=== PATIENT | male | born 1955 | race Caucasian/White ===

== ENCOUNTER 2024-08-13 07:00 | Day surgery (SDC) | payer OTHER, SELFPAY ==
[2024-08-08 13:17] VITALS: BMI 25.8
--- NOTE | 2024-08-08 13:46 | ESHP_ITS ---
RE: GLEN JOVEL : 1955 DATE OF ADMISSION: 08/08/2024 DATE OF OPERATION: 08/13/2024. CHIEF COMPLAINT: Numbness and tingling in both hands. HISTORY OF PRESENT ILLNESS: The patient is a 69-year-old male, who has developed carpal tunnel bilaterally by EMG and nerve conduction study. It has been going on for a number of months. Night symptoms are more compelling than the symptoms during the day. He is scheduled for a right carpal tunnel release. PAST MEDICAL HISTORY: Reviewed. SOCIAL HISTORY: with two children. OPERATIONS: None. ALLERGIES: NONE. MEDICATIONS: 1. Lisinopril. 2. Bisoprolol-hydrochlorothiazide. 3. Amlodipine. MAJOR MEDICAL ILLNESSES: Hypertension. FAMILY HISTORY: Positive for DE, hypertension. Both parents with heart attack. REVIEW OF SYSTEMS: Denies chest pain, shortness of breath, orthopnea, paroxysmal nocturnal dyspnea, dyspnea on exertion, productive cough, hemoptysis. No nausea, vomiting, diarrhea, constipation, hematemesis, hematochezia, melena, black tarry bowel movements. Denies dysuria or prior hematuria. Denies stroke, seizures, or syncopal episodes. No change in molds or rashes. No seizure disorder. PHYSICAL EXAMINATION: GENERAL: Shows a well-developed, well-nourished male, in no acute distress. HEENT: Normocephalic without masses. EOMs full. Throat clear. NECK: Supple. CHEST: Clear to P and A. HEART: Regular rate and rhythm. No murmurs. No gallops. ABDOMEN: Soft, nontender. No masses. No organomegaly. BREAST: Deferred. RECTAL: Deferred. EXTREMITIES: Examination of extremities shows that he has some thenar atrophy on the right. Decreased sensation in the median nerve distribution right and left hand. [employer]ing [employer] strength today 85 right and 85 left. He is right-hand dominant. ASSESSMENT: Severe carpal tunnel syndrome present bilaterally, right more than left to the point where he is unable to oppose tip of right thumb to tip of right little finger. PLAN: Right carpal tunnel release. The risks of the procedure were explained to the patient and signed informed consent was done in my office. DT: 12:46:05 TT: 13:45:00 Ref: [id number] - TID: [id number]
[2024-08-08 14:32] LABS: Basophils % (Auto) 0 % (0-2.5); Eosinophils # (Auto) 0.2 Thou/mm3 (0.0-0.5); Eosinophils % (Auto) 2 % (0-10); Hematocrit 43.6 % (41.0-53.0); Hemoglobin 15.6 g/dL (13.5-16.0); Immature Granulocytes % (Auto) 0 % (0-0); Immature Granulocytes Auto 0.02 Thou/mm3 (0.00-0.00); Lymphocytes # (Auto) 2.5 Thou/mm3 (1.0-4.8); Lymphocytes % (Auto) 32 % (10-50); Mean Corpuscular HGB Conc 35.8 g/dl (31.0-37.0); Mean Corpuscular Hemoglobin 32.9 pg (25.0-35.0); Mean Corpuscular Volume 92 fL (80-100); Monocytes # (Auto) 0.9 Thou/mm3 (0.0-0.8); Monocytes % (Auto) 11 % (0-12); Neutrophils # (Auto) 4.4 Thou/mm3 (1.8-7.7); Neutrophils % (Auto) 55 % (37-80); Nucleated Red Blood Cell % 0 /100 WBC (0); Platelet Count 236 Thou/mm3 (140-440); RDW Standard Deviation 39.8 fL (35.1-43.9); Red Blood Count 4.74 Miln/mm3 (4.50-5.90)
[2024-08-08 14:39] LABS: Partial Thromboplastin Time 27.3 Seconds (22.0-36.0); Prothrombin Time 11.4 Seconds (9.0-12.2)
[2024-08-08 14:43] LABS: Alanine Aminotransferase 29 U/L (10-49); Albumin, Serum 4.3 gm/dL (3.4-4.8); Albumin/Globulin Ratio 1.3 (1.2-2.2); Alkaline Phosphatase 71 U/L (46-116); Anion Gap 8 (7-16); Aspartate Amino Transferase 29 U/L (0-34); BUN/Creatinine Ratio 9 Ratio (12-20); Bilirubin,Total 0.5 mg/dL (0.3-1.2); Blood Urea Nitrogen 10 mg/dL (9-23); Calcium 9.5 mg/dL (8.3-10.6); Calcium (Corrected) 9.5 mg/dL (8.5-10.1); Carbon Dioxide 27.8 mMol/L (20.0-31.0); Chloride 105 mMol/L (98-107); Creatinine (Component) 1.1 mg/dL (0.6-1.3); Globulin 3.3 gm/dL (2.3-3.5); Glucose 108 mg/dL (74-106); Osmolality,Calculated 281 (275-295); Potassium 3.9 mMol/L (3.4-5.1); Sodium 141 mMol/L (136-145); Total Protein 7.6 gm/dL (5.7-8.2); eGFR > 60 See Note
--- NOTE | 2024-08-10 14:55 | SUR.PREOP ---
Cardiac records and history reviewed with Dr Owen.
[2024-08-13] VITALS (7 sets, daily range): BP systolic 132–164; BP diastolic 71–80; PULSE 60–94; RESP 13–18; TEMP 36.6–36.7; O2SAT 95–99; BMI 24.0
--- NOTE | 2024-08-13 09:55 | SUR.PHASEI ---
pt received from OR in recovery bay 7. pt awake and alert, breathing unlabored on room air. v/s stable. pt dressing to right wrist cdi. report received from Mandie HERRON and Dr. Owen.
--- NOTE | 2024-08-13 09:57 | ESOP_ITS ---
Date of Procedure 08/13/24 Pre Op Diagnosis Right carpal tunnel syndrome Post Op Diagnosis Right carpal tunnel syndrome Procedure Release of right carpal tunnel Findings Thick transverse carpal ligament with the median nerve pinched deep to the ligament with some hyperemic changes of the nerve itself Procedure Description Patient taken the operating room and the right upper extremity was identified as the correct extremity during the timeout procedure He received 2 g of Ancef The right upper extremity was then prepped and draped in standard fashion after general anesthesia was achieved The right upper extremity was exsanguinated and the tourniquet was inflated to 200 mmHg A straight palmar incision was made it was longitudinal with curvature at the palm. This carried down through the subcutaneous tissue through the palmar aponeurosis. The transverse carpal ligament was identified. It was incised distally with a #15 blade and proximally into the distal antebrachial fascia using a small curved strabismus the nerve was protected throughout the procedure. The nerve was released completely. Quarter percent Marcaine with epinephrine was injected into the cyst soft tissue in the transverse carpal ligament. Good hemostasis was achieved. The wound was closed with 405 0 and 6- 0 nylon. 10 cc blood loss. Bulky dressing applied using Dakin soaked Kerlix sponge dry Kerlix sponges and 4 inch sterile cut bias. It was secured with net dressing. He was taken recover room uneventfully. Sponge needle counts were correct Anesthesia GETA Drains None Implants None Pathology / specimen None IVF Infused 400 Urine Output 0 Estimated Blood Loss 10 Condition Stable Disposition PACU Surgeon Kane Simmons MD Surgical Staff Operation Date: 08/13/24 09:00 Case Staff Anesthesiologist: Malcolm Owen RNvp director of creative strategy: Regina Garcia
--- NOTE | 2024-08-13 10:18 | SUR.PHASEI ---
pt able to tolerate oral fluids without difficulty swallowing or nausea/vomiting.
--- NOTE | 2024-08-13 10:47 | SUR.PHASEII ---
pt awake and alert, breathing unlabored on room air. v/s stable. pt dressing to right wrist cdi. pt able to ambulate to wheelchair with steady gait. d/c instructions given with Almita in room, all questions answered. pt d/c via wheelchair with all belongings.
== END 2024-08-13 10:47 | disposition home or self-care (01) ==
PROVIDERS: PCP Family Medicine; Referring Provider Orthopaedic Surgery; Visit Provider Orthopaedic Surgery
PROC: (CPT 64721; principal; 2024-08-13 08:45)
DX: G56.01 Carpal tunnel syndrome, right upper limb (principal)
CPT/HCPCS: 64721; 36415; 80053; 85025; 85610; 85730; A4217; A4649; J0690; J1100; J2405; J2704; J3010; J3490; A9270; J1596; J1920